=== PATIENT | female | born 1980 | race Caucasian/White ===

== ENCOUNTER 2024-10-25 13:10 | Emergency (ER) | payer OTHER ==
[~2024-10-25] VITALS: Ht 177.8 cm; Wt 68.0 kg
[2024-10-25 13:15] VITALS: BP 142/98
[2024-10-25] MEDS ORDERED: Dexamethasone Sod Phos 10 MG/ML 1ML VIAL PO ONE (14:30)
[2024-10-25] MEDS ORDERED: BETASEPT118 M1 UD (14:37)
== END 2024-10-25 15:49 | disposition home or self-care (01) ==
LOC: ER 13:10
DX: K04.7 Periapical abscess without sinus (principal)
CPT/HCPCS: 41800; 99283-25; J1100